=== PATIENT | female | born 1940 | race Caucasian/White ===

== ENCOUNTER 2018-02-13 09:39 | Emergency (ER) | payer MEDICARE, OTHER ==
[~2018-02-13] VITALS: Ht 160 cm; Wt 90.7 kg
[2018-02-13] MEDS ORDERED: CENTRUM SILVER1 EAC4 PO (09:51)
[2018-02-13] MEDS ORDERED: ALLEGRA ALLERG180 MG PO (09:51)
[2018-02-13] MEDS ORDERED: COZAAR 25 MG TA25 M1 PO (09:51)
[2018-02-13] MEDS ORDERED: ZANTAC 150MG T150 MG PO (09:52)
[2018-02-13] MEDS ORDERED: PRAVACHOL20 MG PO (09:52)
[2018-02-13 11:34] VITALS: BP 155/79
== END 2018-02-13 11:34 | disposition home or self-care (01) ==
LOC: M.ERS 09:39
DX: S61.512A Laceration without foreign body of left wrist, initial encounter (principal); I10 Essential (primary) hypertension; Z88.5 Allergy status to narcotic agent; W25.XXXA Contact with sharp glass, initial encounter; Y93.89 Activity, other specified; Y92.89 Other specified places as the place of occurrence of the external cause; Y99.8 Other external cause status